=== PATIENT | male | born 1980 | race Asian ===

== ENCOUNTER 2017-03-28 06:02 | Day surgery (SDC) | payer OTHER ==
[2017-03-27 16:44] VITALS: BMI 34.8
--- NOTE | 2017-03-28 06:58 | HP ---
Admitting History and Physical - Primary Care Physician PCP: Erika Anaya - Admission Chief Complaint: depression History of Present Illness: patient is a 36 y/o male with a past medical history of depression and mitral valve prolapse. Patient presents for ect. He has received ect last year (2015) at [facility]. Patient report stopping after 4 treatment due to lack of symptom relief of depression. patient reports a recent hospitalization at [facility] in January 2017 for one month. He reports a suicide attempt last year (attempted pill overdose) patient denies any suicidal ideation. He denies any homicidal ideation, visual or auditory hallucinations. He does report compliance with prescribed medication and is hoping to start ECT in order to decrease his medication regimen. History Source: Patient Limitations to Obtaining History: No Limitations - Past Medical History Cardiovascular: Yes: Other (mitral valve prolapse) - Smoking History Smoking history: Former smoker Have you smoked in the past 12 months: No If you are a former smoker, when did you quit?: 2013 - Alcohol/Substance Use Hx Alcohol Use: No (RARELY) - Social History Usual Living Arrangement: Yes: With Parent ADL: Independent Occupation: medical aide History of Recent Travel: Yes (returned from [place] yesterday ) Home Medications - Allergies Allergies/Adverse Reactions: Allergies Allergy/AdvReac Type Severity Reaction Status Date / Time Penicillins Allergy Intermediate Rash Verified 03/27/17 16:23 - Home Medications Home Medications: Ambulatory Orders Bupropion HCl [Wellbutrin Xl] 300 mg PO DAILY 03/27/17 Cholecalciferol (Vitamin D3) [Vitamin D3 -] 2,000 unit PO DAILY 03/27/17 Clonazepam [Klonopin] 1 mg PO ACDIN 03/27/17 Lisdexamfetamine Dimesylate [Vyvanse] 40 mg PO DAILY 03/27/17 Melatonin 5 mg PO DAILY 03/27/17 Mirtazapine 15 mg PO HS 03/27/17 Multivitamin [Poly-Vitamin] 1 each PO DAILY 03/27/17 Wedron-3 Fatty Acids/Fish Oil [Fish Oil 1,000 mg Softgel] 1 each PO DAILY Venlafaxine HCl ER [Effexor Xr -] 225 mg PO DAILY 03/27/17 Ziprasidone HCl [Geodon] 160 mg PO HS 03/27/17 Family Disease History - Family Disease History Family Disease History: Other: Grandparent (grandmother depression), Brother ( depression ), Sister (depression ) Review of Systems - Review of Systems Constitutional: reports: No Symptoms Eyes: reports: No Symptoms HENT: reports: No Symptoms Neck: reports: No Symptoms Cardiovascular: reports: No Symptoms Respiratory: reports: No Symptoms Gastrointestinal: reports: No Symptoms Genitourinary: reports: No Symptoms Musculoskeletal: reports: No Symptoms Integumentary: reports: No Symptoms, Rash, Other (red raised rash to posterior neck) Neurological: reports: No Symptoms Endocrine: reports: No Symptoms Hematology/Lymphatic: reports: No Symptoms Psychiatric: reports: Depression Physical Examination Constitutional: Yes: Well Nourished, No Distress, Calm Eyes: Yes: WNL, Conjunctiva Clear, EOM Intact HENT: Yes: WNL, Atraumatic, Normocephalic Neck: Yes: WNL, Supple, Trachea Midline Cardiovascular: Yes: WNL, Regular Rate and Rhythm, S1, S2 Respiratory: Yes: WNL, Regular, CTA Bilaterally Gastrointestinal: Yes: WNL, Normal Bowel Sounds, Soft ...Rectal Exam: Yes: Deferred Renal/: Yes: WNL Musculoskeletal: Yes: WNL Extremities: Yes: WNL Edema: No Peripheral Pulses WNL: Yes Peripheral Pulses: Left Radial: 4+, Right Radial: 4+, Left Doralis Pedis: 3+, Right Dorsalis Pedis: 3+, Left Femoral: 3+, Right Femoral: 3+ Integumentary: Yes: WNL Neurological: Yes: WNL, Alert, Oriented ...Motor Strength: WNL Psychiatric: Yes: WNL, Alert, Oriented, Other (flat affect) Labs: reviewed 03/04 Imaging - Results EKG: Other (nsr no ischmeic changes) Assessment/Plan pt is a 36 y/o that presents for ect, he has received ect in the past and denies any adverse reaction to anesthesia. labs and ekg reviewed pt is low risk for procedure informed consent, risks/benefits to be obtained by Dr Shaw
[2017-03-28] MEDS ORDERED: KETAMINE HCL 500 MG/10 ML VIAL ONE (07:22)
[2017-03-29] MEDS ORDERED: KETAMINE HCL 500 MG/10 ML VIAL ONE (06:59)
[2017-03-29 10:56] VITALS: BP 133/90; PULSE 84; TEMP 98
--- NOTE | 2017-03-29 17:30 | EKG ---
Test Reason : Blood Pressure : / mmHG Vent. Rate : 090 BPM Atrial Rate : 090 BPM P-R Int : 146 ms QRS Dur : 092 ms QT Int : 378 ms P-R-T Axes : 059 029 015 degrees QTc Int : 462 ms NORMAL SINUS RHYTHM NONSPECIFIC ST ABNORMALITY NO PREVIOUS ECGS AVAILABLE Confirmed by MD ROXANN, MARC ([id number]) on 03/29/2017 5:29:57 PM Referred By: Jarad Shaw Confirmed By:MARC HACKETT MD
== END 2017-03-28 08:40 | disposition home or self-care (01) ==
LOC: FECT 06:02
PROVIDERS: ATTEND Psychiatry & Neurology Psychiatry
PROC: GZB4ZZZ Other Electroconvulsive Therapy (ICD-10-PCS; principal; 2017-03-28 07:30)
DX: F33.2 Major depressive disorder, recurrent severe without psychotic features (principal)
CPT/HCPCS: 90870; 93005; 93010; 94760

== ENCOUNTER 2017-03-29 05:50 | Day surgery (SDC) | payer OTHER ==
[2017-03-27 17:37] VITALS: BMI 34.8
[2017-03-29 06:30] VITALS: TEMP 98.6
[2017-03-29 08:19] VITALS: BP 126/83; PULSE 97
== END 2017-03-29 08:45 | disposition home or self-care (01) ==
LOC: FECT 05:50
PROVIDERS: ATTEND Psychiatry & Neurology Psychiatry
PROC: GZB4ZZZ Other Electroconvulsive Therapy (ICD-10-PCS; principal; 2017-03-29 08:30)
DX: F33.2 Major depressive disorder, recurrent severe without psychotic features (principal)
CPT/HCPCS: 90870; 94760

== ENCOUNTER 2017-04-01 05:52 | Day surgery (SDC) | payer OTHER ==
[2017-03-28 12:13] VITALS: BMI 34.8
[2017-04-01] MEDS ORDERED: KETAMINE HCL 500 MG/10 ML VIAL ONE (06:53)
[2017-04-01 08:10] VITALS: BP 110/62; PULSE 92; TEMP 98
== END 2017-04-01 08:41 | disposition home or self-care (01) ==
LOC: FECT 05:52
PROVIDERS: ATTEND Psychiatry & Neurology Psychiatry
PROC: GZB4ZZZ Other Electroconvulsive Therapy (ICD-10-PCS; principal; 2017-04-01 09:00)
DX: F33.2 Major depressive disorder, recurrent severe without psychotic features (principal)
CPT/HCPCS: 90870; 94760

== ENCOUNTER 2017-04-03 05:35 | Day surgery (SDC) | payer OTHER ==
[2017-03-28 12:07] VITALS: BMI 34.8
[2017-04-03 06:59] VITALS: TEMP 98
[2017-04-03] MEDS ORDERED: KETAMINE HCL 500 MG/10 ML VIAL ONE (08:04)
[2017-04-03 09:28] VITALS: BP 131/88; PULSE 88
== END 2017-04-03 09:30 | disposition home or self-care (01) ==
LOC: FECT 05:35
PROVIDERS: ATTEND Psychiatry & Neurology Psychiatry
PROC: GZB4ZZZ Other Electroconvulsive Therapy (ICD-10-PCS; principal; 2017-04-03 08:45)
DX: F33.2 Major depressive disorder, recurrent severe without psychotic features (principal)
CPT/HCPCS: 90870; 94760

== ENCOUNTER 2017-04-04 05:29 | Day surgery (SDC) | payer OTHER ==
[2017-04-01 11:37] VITALS: BMI 34.8
[2017-04-04] MEDS ORDERED: KETAMINE HCL 500 MG/10 ML VIAL ONE (07:04)
[2017-04-04 08:01] VITALS: TEMP 97.6
[2017-04-04 08:37] VITALS: BP 101/76; PULSE 96
[2017-04-04] MEDS ORDERED: ACETAMINOPHEN 325 MG TABLET (FP) PO PRN (09:48)
[2017-04-04] MEDS ORDERED: ONDANSETRON 4 MG/2 ML VIAL IVPUSH PRN (09:48)
== END 2017-04-04 08:38 | disposition home or self-care (01) ==
LOC: FECT 05:29
PROVIDERS: ATTEND Psychiatry & Neurology Psychiatry
PROC: GZB4ZZZ Other Electroconvulsive Therapy (ICD-10-PCS; principal; 2017-04-04 07:45)
DX: F33.2 Major depressive disorder, recurrent severe without psychotic features (principal)
CPT/HCPCS: 90870; 94760

== ENCOUNTER 2017-04-08 05:50 | Day surgery (SDC) | payer OTHER ==
[2017-03-28 12:18] VITALS: BMI 34.8
[2017-04-08] MEDS ORDERED: KETAMINE HCL 500 MG/10 ML VIAL ONE (08:24)
[2017-04-08 09:41] VITALS: TEMP 97.8
[2017-04-08 10:06] VITALS: BP 136/84; PULSE 82
== END 2017-04-08 10:08 | disposition home or self-care (01) ==
LOC: FECT 05:50
PROVIDERS: ATTEND Psychiatry & Neurology Psychiatry
PROC: GZB4ZZZ Other Electroconvulsive Therapy (ICD-10-PCS; principal; 2017-04-08 08:00)
DX: F33.2 Major depressive disorder, recurrent severe without psychotic features (principal)
CPT/HCPCS: 90870; 94760

== ENCOUNTER 2017-04-10 07:12 | Day surgery (SDC) | payer OTHER ==
[2017-04-04 16:09] VITALS: BMI 34.8
[2017-04-10] MEDS ORDERED: KETAMINE HCL 500 MG/10 ML VIAL ONE (08:17)
[2017-04-10] MEDS ORDERED: ACETAMINOPHEN 325 MG TABLET (FP) PO PRN (08:23)
[2017-04-10] MEDS ORDERED: ONDANSETRON 4 MG/2 ML VIAL IVPUSH PRN (08:24)
[2017-04-10 11:04] VITALS: TEMP 97.6
[2017-04-10 11:07] VITALS: BP 132/90; PULSE 82
== END 2017-04-10 09:30 | disposition home or self-care (01) ==
LOC: FECT 07:12
PROVIDERS: ATTEND Psychiatry & Neurology Psychiatry
PROC: GZB4ZZZ Other Electroconvulsive Therapy (ICD-10-PCS; principal; 2017-04-10 08:15)
DX: F33.2 Major depressive disorder, recurrent severe without psychotic features (principal)
CPT/HCPCS: 90870; 94760

== ENCOUNTER 2017-04-12 06:27 | Day surgery (SDC) | payer OTHER ==
[2017-04-04 16:12] VITALS: BMI 34.8
[2017-04-12 07:31] VITALS: TEMP 98.1
[2017-04-12] MEDS ORDERED: KETAMINE HCL 500 MG/10 ML VIAL ONE (08:08)
[2017-04-12] MEDS ORDERED: LACTATED RINGERS SOLUTION 1,000 ML IV SCH (08:30)
[2017-04-12 09:17] VITALS: BP 133/79; PULSE 88
== END 2017-04-12 09:20 | disposition home or self-care (01) ==
LOC: FECT 06:27
PROVIDERS: ATTEND Psychiatry & Neurology Psychiatry
PROC: GZB4ZZZ Other Electroconvulsive Therapy (ICD-10-PCS; principal; 2017-04-12 08:15)
DX: F33.2 Major depressive disorder, recurrent severe without psychotic features (principal)
CPT/HCPCS: 90870; 94760

== ENCOUNTER 2017-04-16 07:09 | Day surgery (SDC) | payer OTHER ==
[2017-04-10 11:50] VITALS: BMI 34.8
[2017-04-16] MEDS ORDERED: ACETAMINOPHEN 325 MG TABLET (FP) PO PRN (07:52)
[2017-04-16] MEDS ORDERED: ONDANSETRON 4 MG/2 ML VIAL IVPUSH PRN (07:52)
[2017-04-16] MEDS ORDERED: KETAMINE HCL 500 MG/10 ML VIAL ONE (08:55)
[2017-04-16 09:58] VITALS: TEMP 98
[2017-04-16 10:02] VITALS: BP 120/79; PULSE 89
== END 2017-04-16 10:15 | disposition home or self-care (01) ==
LOC: FECT 07:09
PROVIDERS: ATTEND Psychiatry & Neurology Psychiatry
PROC: GZB4ZZZ Other Electroconvulsive Therapy (ICD-10-PCS; principal; 2017-04-16 08:15)
DX: F33.2 Major depressive disorder, recurrent severe without psychotic features (principal)
CPT/HCPCS: 90870; 94760

== ENCOUNTER 2017-04-18 07:19 | Day surgery (SDC) | payer OTHER ==
[2017-04-10 12:20] VITALS: BMI 34.8
[2017-04-18] MEDS ORDERED: KETAMINE HCL 500 MG/10 ML VIAL ONE (08:08)
[2017-04-18 09:33] VITALS: TEMP 98
[2017-04-18 09:48] VITALS: BP 138/88; PULSE 96
== END 2017-04-18 10:00 | disposition home or self-care (01) ==
LOC: FECT 07:19
PROVIDERS: ATTEND Psychiatry & Neurology Psychiatry
PROC: GZB4ZZZ Other Electroconvulsive Therapy (ICD-10-PCS; principal; 2017-04-18 08:15)
DX: F33.2 Major depressive disorder, recurrent severe without psychotic features (principal)
CPT/HCPCS: 90870; 94760

== ENCOUNTER 2017-04-22 05:38 | Day surgery (SDC) | payer OTHER ==
[2017-04-10 12:46] VITALS: BMI 34.8
[2017-04-22] MEDS ORDERED: KETAMINE HCL 500 MG/10 ML VIAL ONE (08:32)
[2017-04-22] MEDS ORDERED: ACETAMINOPHEN 325 MG TABLET (FP) PO PRN (09:14)
[2017-04-22 09:59] VITALS: TEMP 98.3
[2017-04-22 10:18] VITALS: BP 134/77; PULSE 86
== END 2017-04-22 10:10 | disposition home or self-care (01) ==
LOC: FECT 05:38
PROVIDERS: ATTEND Psychiatry & Neurology Psychiatry
PROC: GZB4ZZZ Other Electroconvulsive Therapy (ICD-10-PCS; principal; 2017-04-22 07:00)
DX: F33.2 Major depressive disorder, recurrent severe without psychotic features (principal)
CPT/HCPCS: 90870; 94760

== ENCOUNTER 2017-04-24 05:37 | Day surgery (SDC) | payer OTHER ==
[2017-04-16 13:14] VITALS: BMI 34.8
[2017-04-24 06:19] VITALS: TEMP 98
[2017-04-24] MEDS ORDERED: KETAMINE HCL 500 MG/10 ML VIAL ONE (06:53)
[2017-04-24 08:18] VITALS: BP 135/75; PULSE 94
[2017-04-24] MEDS ORDERED: LACTATED RINGERS SOLUTION 1,000 ML IV SCH (08:45)
[2017-04-24] MEDS ORDERED: ONDANSETRON 4 MG/2 ML VIAL IVPUSH PRN (09:23)
== END 2017-04-24 08:20 | disposition home or self-care (01) ==
LOC: FECT 05:37
PROVIDERS: ATTEND Psychiatry & Neurology Psychiatry
PROC: GZB4ZZZ Other Electroconvulsive Therapy (ICD-10-PCS; principal; 2017-04-24 07:00)
DX: F33.2 Major depressive disorder, recurrent severe without psychotic features (principal)
CPT/HCPCS: 90870; 94760

== ENCOUNTER 2017-04-26 05:41 | Day surgery (SDC) | payer OTHER ==
[2017-04-23 10:00] VITALS: BMI 34.8
[2017-04-26] MEDS ORDERED: KETAMINE HCL 500 MG/10 ML VIAL ONE (07:32)
[2017-04-26 09:28] VITALS: TEMP 98.1
[2017-04-26 09:29] VITALS: BP 129/81; PULSE 88
== END 2017-04-26 09:00 | disposition home or self-care (01) ==
LOC: FECT 05:41
PROVIDERS: ATTEND Psychiatry & Neurology Psychiatry
PROC: GZB4ZZZ Other Electroconvulsive Therapy (ICD-10-PCS; principal; 2017-04-26 07:45)
DX: F33.2 Major depressive disorder, recurrent severe without psychotic features (principal)
CPT/HCPCS: 90870; 94760

== ENCOUNTER 2017-04-29 05:38 | Day surgery (SDC) | payer OTHER ==
[2017-04-23 11:40] VITALS: BMI 34.8
--- NOTE | 2017-04-29 07:05 | HP ---
Admitting History and Physical - Admission History of Present Illness: patient is a 36 y/o male with a past medical history of depression and mitral valve prolapse. Patient presents for ect, his last ect was 04/26/17. Patient reports feels slight improvement in his depressive symptoms since starting ect. He reports only taking vynasse and trazadone with prn klonopin. patient denies any recent hospitalizations or illness. He denies any suicidal or homicidal ideation, visual or auditory hallucination. History Source: Patient Limitations to Obtaining History: No Limitations - Past Medical History Cardiovascular: Yes: Other - Smoking History Smoking history: Former smoker Have you smoked in the past 12 months: No If you are a former smoker, when did you quit?: 2013 - Alcohol/Substance Use Hx Alcohol Use: Yes (RARELY) - Social History Usual Living Arrangement: Yes: With Parent ADL: Independent Occupation: medical educator History of Recent Travel: Yes (returned from [place] yesterday ) Home Medications - Allergies Allergies/Adverse Reactions: Allergies Allergy/AdvReac Type Severity Reaction Status Date / Time Penicillins Allergy Intermediate Rash Verified 04/26/17 06:51 - Home Medications Home Medications: Ambulatory Orders RX: Cholecalciferol (Vitamin D3) [Vitamin D3 -] 2,000 unit PO DAILY 03/27/17 RX: Clonazepam [Klonopin] 1 mg PO ACDIN 03/27/17 RX: Lisdexamfetamine Dimesylate [Vyvanse] 40 mg PO DAILY 03/27/17 RX: Melatonin 5 mg PO HS 03/27/17 RX: Multivitamin [Poly-Vitamin] 1 each PO DAILY 03/27/17 RX: Effie-3 Fatty Acids/Fish Oil [Fish Oil 1,000 mg Softgel] 1 each PO DAILY 09/03 RX: Acetaminophen [Tylenol .Extra-Strength -] 500 mg PO ASDIR PRN 04/01/17 RX: Ibuprofen 400 mg PO ASDIR PRN 04/01/17 RX: Trazodone HCl 50 mg PO HS 04/16/17 Ranitidine HCl [Zantac 75] 75 mg PO HS PRN 04/29/17 Family Disease History - Family Disease History Family Disease History: Other: Grandparent, Brother, Sister Review of Systems - Review of Systems Constitutional: reports: No Symptoms Eyes: reports: No Symptoms HENT: reports: No Symptoms Neck: reports: No Symptoms Cardiovascular: reports: No Symptoms Respiratory: reports: No Symptoms Gastrointestinal: reports: No Symptoms Genitourinary: reports: No Symptoms Musculoskeletal: reports: No Symptoms Integumentary: reports: No Symptoms Neurological: reports: No Symptoms Endocrine: reports: No Symptoms Hematology/Lymphatic: reports: No Symptoms Psychiatric: reports: No Symptoms Physical Examination Vital Signs: Vital Signs Temperature 98.0 F 04/29/17 06:44 Pulse Rate 83 04/29/17 06:44 Respiratory Rate 18 04/29/17 06:44 Blood Pressure 144/87 04/29/17 06:44 O2 Sat by Pulse Oximetry (%) Constitutional: Yes: Well Nourished, No Distress, Calm Eyes: Yes: WNL, Conjunctiva Clear, EOM Intact HENT: Yes: WNL, Atraumatic, Normocephalic Neck: Yes: WNL, Supple, Trachea Midline Cardiovascular: Yes: WNL, Regular Rate and Rhythm, S1, S2 Respiratory: Yes: WNL, Regular, CTA Bilaterally Gastrointestinal: Yes: WNL, Normal Bowel Sounds, Soft ...Rectal Exam: Yes: Deferred Renal/: Yes: WNL Breast(s): Yes: WNL Extremities: Yes: WNL Edema: No Peripheral Pulses WNL: Yes Integumentary: Yes: WNL Neurological: Yes: WNL, Alert, Oriented ...Motor Strength: WNL Psychiatric: Yes: WNL, Alert, Oriented Labs: reviewed 03/04 Assessment/Plan pt is a 36 y/0 male that presents for ect, he has received ect in the past and denies any adverse reaction to anesthesia labs and ekg reviewed pt is low risk for procedure informed consent, risk/benefits to be obtained by Dr Shaw
[2017-04-29] MEDS ORDERED: KETAMINE HCL 500 MG/10 ML VIAL ONE (07:52)
[2017-04-29 08:48] VITALS: TEMP 97.7
[2017-04-29 09:20] VITALS: BP 133/88; PULSE 74
== END 2017-04-29 09:25 | disposition home or self-care (01) ==
LOC: FECT 05:38
PROVIDERS: ATTEND Psychiatry & Neurology Psychiatry
PROC: GZB4ZZZ Other Electroconvulsive Therapy (ICD-10-PCS; principal; 2017-04-29 07:30)
DX: F33.2 Major depressive disorder, recurrent severe without psychotic features (principal)
CPT/HCPCS: 90870; 94760

== ENCOUNTER 2017-05-03 05:41 | Day surgery (SDC) | payer OTHER ==
[2017-04-23 12:04] VITALS: BMI 34.8
[2017-05-03] MEDS ORDERED: KETAMINE HCL 500 MG/10 ML VIAL ONE (06:57)
[2017-05-03] MEDS ORDERED: METOCLOPRAMIDE HCL INJECTION 10 MG/2 ML VIAL IVPUSH ONE ×2 (07:40→07:59)
[2017-05-03] MEDS ORDERED: LACTATED RINGERS SOLUTION 1,000 ML IV SCH (08:00)
[2017-05-03 08:14] VITALS: BP 123/80
[2017-05-03 08:22] VITALS: PULSE 90; TEMP 98
== END 2017-05-03 08:30 | disposition home or self-care (01) ==
LOC: FECT 05:41
PROVIDERS: ATTEND Psychiatry & Neurology Psychiatry
PROC: GZB4ZZZ Other Electroconvulsive Therapy (ICD-10-PCS; principal; 2017-05-03 07:30)
DX: F33.2 Major depressive disorder, recurrent severe without psychotic features (principal)
CPT/HCPCS: 90870; 94760

== ENCOUNTER 2017-05-07 05:43 | Day surgery (SDC) | payer OTHER ==
[2017-04-25 10:59] VITALS: BMI 34.8
[2017-05-07 07:09] VITALS: TEMP 98
[2017-05-07] MEDS ORDERED: KETAMINE HCL 500 MG/10 ML VIAL ONE (07:47)
[2017-05-07 09:32] VITALS: BP 125/84; PULSE 84
== END 2017-05-07 09:30 | disposition home or self-care (01) ==
LOC: FECT 05:43
PROVIDERS: ATTEND Psychiatry & Neurology Psychiatry
PROC: GZB4ZZZ Other Electroconvulsive Therapy (ICD-10-PCS; principal; 2017-05-07 07:45)
DX: F33.2 Major depressive disorder, recurrent severe without psychotic features (principal)
CPT/HCPCS: 90870; 94760

== ENCOUNTER 2017-05-10 05:43 | Day surgery (SDC) | payer OTHER ==
[2017-05-07 11:08] VITALS: BMI 34.8
[2017-05-10] MEDS ORDERED: KETAMINE HCL 500 MG/10 ML VIAL ONE (06:49)
[2017-05-10 07:59] VITALS: TEMP 97.7
[2017-05-10 08:07] VITALS: BP 146/93; PULSE 94
== END 2017-05-10 08:10 | disposition home or self-care (01) ==
LOC: FECT 05:43
PROVIDERS: ATTEND Psychiatry & Neurology Psychiatry
PROC: GZB4ZZZ Other Electroconvulsive Therapy (ICD-10-PCS; principal; 2017-05-10 08:00)
DX: F33.2 Major depressive disorder, recurrent severe without psychotic features (principal)
CPT/HCPCS: 90870; 94760